=== PATIENT | male | born 1965 | race Caucasian/White ===

== ENCOUNTER 2017-08-10 03:31 | Emergency (ER) | payer OTHER ==
[2017-08-10 04:07] LABS: Absolute Lymphocytes (CBC) 2.1 K/uL (0.7-4.9); Absolute Monocytes 0.6 K/uL (0.1-1.3); Absolute Neutrophil 5.4 K/uL (1.8-8.0); Basophils % 0.6 % (0-1.3); Eosinophils % 1.6 % (0-4.4); Hematocrit 46.3 % (39.6-49.0); Lymphocytes % 25.1 % (15.3-44.8); MCH 31.2 pg (27.0-35.0); MCV 93.2 fL (80-100); MPV 8.1 fL (7.6-11.3); Monocytes % 6.7 % (3.3-12.3); RBC Red Blood Cell Count 4.96 M/uL (4.33-5.43)
[2017-08-10 04:17] LABS: Protime INR 0.99
[2017-08-10 04:23] LABS: Potassium 3.3 mEq/L (3.6-5.0)
[2017-08-10 04:29] LABS: Albumin 4.1 g/dL (3.2-5.5); Bilirubin Direct 0.1 mg/dL (0-0.2); Bilirubin Total 0.5 mg/dL (0.3-1.2); Magnesium 2.2 mg/dL (1.8-2.5)
[2017-08-10 04:31] LABS: CKMB Creatine Kinase MB 4.4 ng/ml (0.3-4.0)
--- NOTE | 2017-08-10 05:29 | ER ---
Nurse's Notes [facility] Name: Fuad Sullivan Age: 52 yrs Sex: Male : 1965 Arrival Date: 08/10/2017 Time: 03:32 Bed 8 Private MD: Diagnosis: Syncope and collapse Presentation: 08/10 03:40 Presenting complaint: states: approx 43 mis [employer] pt began vomiting and having aa1 diarrhea and had a syncopal episode while sitting on the toilet. reports pt slumped over onto her but did not fall. Pt denies any pain at this time. Transition of care: patient was not received from another setting of care. Onset of symptoms was August 10, 2017 at 02:45. Care prior to arrival: None. 03:40 Method Of Arrival: Ambulatory aa1 03:40 Acuity: TYLER 3 aa1 Triage Assessment: 03:40 General: Appears in no apparent distress. comfortable, Behavior is calm, cooperative, aa1 appropriate for age. Neuro: Level of Consciousness is awake, alert, obeys commands, Oriented to person, place, time, situation. Historical: - Allergies: 03:49 No Known Allergies; aa1 - Home Meds: 03:49 metoprolol tartrate 50 mg Oral tab once daily [Active]; atorvastatin 20 mg oral tab 1 aa1 tab once daily [Active]; famotidine 20 mg Oral tab [Active]; - PMHx: 03:49 High Cholesterol; Hypertension; Gastric Reflux; aa1 - PSHx: 03:49 left ear surgery; aa1 - Immunization history:: Flu vaccine is not up to date. - Social history:: Smoking status: Patient/guardian denies using tobacco. - Family history:: not pertinent. Screenin:43 Abuse screen: Denies threats or abuse. Denies injuries from another. Nutritional ao screening: No deficits noted. Tuberculosis screening: No symptoms or risk factors identified. Fall Risk Fall in past 12 months (25 points). No secondary diagnosis (0 pts). IV access (20 points). Ambulatory Aid- None/Bed Rest/Nurse Assist (0 pts). Gait- Normal/Bed Rest/Wheelchair (0 pts) Mental Status- Oriented to own ability (0 pts). Total Paz Fall Scale indicates High Risk Score (45 or more points). Fall prevention measures have been instituted. Side Rails Up X 2 Frequent Obs/Assessments Occuring Family Present and informed to notify staff if the need to leave the bedside As available patient and family educated on Fall Prevention Program and Strategies. Assessment: 03:40 General: Appears in no apparent distress. comfortable, Behavior is calm, cooperative, ao appropriate for age. Pain: Complains of pain in abdomen Pain does not radiate. Pain currently is 0 out of 10 on a pain scale. Neuro: Level of Consciousness is awake, alert, obeys commands, Oriented to person, place, time, situation, Appropriate for age Moves all extremities. Speech is normal, Facial symmetry appears normal. Neuro: Reports dizziness, a syncopal episode weakness. Cardiovascular: Heart tones S1 S2 Rhythm is regular. Respiratory: Airway is patent Respiratory effort is even, unlabored, Respiratory pattern is regular, symmetrical. GI: Abdomen is round. GI: Reports nausea. : No signs and/or symptoms were reported regarding the genitourinary system. EENT: No signs and/or symptoms were reported regarding the EENT system. Derm: Skin is intact. Musculoskeletal: Reports weakness in general. 04:42 Reassessment: Patient appears in no apparent distress at this time. Patient and/or ao family updated on plan of care and expected duration. Pain level reassessed. Patient is alert, oriented x 3, equal unlabored respirations, skin warm/dry/pink. Waiting on lab work. 05:45 Reassessment: Patient appears in no apparent distress at this time. Patient and/or ao family updated on plan of care and expected duration. Pain level reassessed. Patient is alert, oriented x 3, equal unlabored respirations, skin warm/dry/pink. Patient to be discharge. 06:00 Reassessment: DC instructions given to patient and family. Patient understand the POC ao and to follow up with a equipment maintenance technician. Patient has no questions at this time. Vital Signs: 03:40 BP 135 / 78; Pulse 69; Resp 16; Temp 97.6; Pulse Ox 100% on R/A; Pain 0/10; aa1 04:42 BP 138 / 83; Pulse 67; Resp 16; Pulse Ox 97% on R/A; Pain 0/10; ao 05:45 BP 136 / 81; Pulse 63; Resp 18; Pulse Ox 100% on R/A; Pain 0/10; ao ED Course: 03:32 Patient arrived in ED. al2 03:36 Carlos Jacques, RN is Primary Nurse. ao 03:37 Lucinda Shell MD is Attending Physician. ma2 03:40 Arm band placed on right wrist. Patient placed in an exam room, on a stretcher. aa1 03:45 Patient has correct armband on for positive identification. Placed in gown. Pulse ox ao on. NIBP on. 03:46 Inserted saline lock: 20 gauge in right antecubital area, using aseptic technique. ao ,using aseptic technique. YAHAIRA Francois Blood collected. 03:48 Triage completed. aa1 05:41 X-ray completed. Portable x-ray completed in exam room. Patient tolerated procedure jw2 well. 05:42 Chest Single View XRAY In Process Unspecified. EDMS 06:02 No provider procedures requiring assistance completed. IV discontinued, intact, ao bleeding controlled, No redness/swelling at site. Pressure dressing applied. Administered Medications: No medications were administered Point of Care Testin:01 None ordered ao Ranges: Outcome: 05:28 Discharge ordered by . ma2 06:02 Discharged to home ambulatory. ao 06:02 Condition: stable 06:02 Discharge instructions given to patient, Instructed on discharge instructions, follow up and referral plans. Demonstrated understanding of instructions, follow-up care, medications. 06:02 Patient left the ED. ao Signatures: Dispatcher [employer] EDMS Ely Núñez RN RN aa1 Carlos Jacques, RN RN Kerrie Jasmine jw2 Sandrine Waggoner al2 Lucinda Shell MD MD ma2 Corrections: (The following items were deleted from the chart) 04:46 03:43 Fall Risk None identified. ao ao
--- NOTE | 2017-08-10 05:29 | EDPHYS ---
Physician Documentation [facility] Name: Fuad Sullivan Age: 52 yrs Sex: Male : 1965 Arrival Date: 08/10/2017 Time: 03:32 Bed 8 Private MD: ED Physician Lucinda Shell HPI: 08/10 03:54 This 52 yrs old Male presents to ER via Ambulatory with complaints of ma2 Syncope, Fever, Nausea/Vomiting/Diarrhea. 03:54 The patient has experienced syncope. Onset: The symptoms/episode began/occurred ma2 suddenly, just prior to arrival. Duration: This was a single episode, that lasted 30 second(s). Context: the episode(s) was witnessed, by family, occurred while the patient was urinating. Associated injury: The patient did not suffer any apparent associated injury. Associated signs and symptoms: Pertinent negatives: abdominal pain, agitation, ataxia, blurred vision, chest pain, combativeness, confusion, diaphoresis, diarrhea, headache, lightheadedness, numbness, palpitations, seizure, shortness of breath, tingling, vertigo, vomiting. Current symptoms: Currently, the patient is not experiencing any symptoms, the patient feels back to baseline. The patient has experienced similar episodes in the past. his syncope in the past is always while urinting . Historical: - Allergies: 03:49 No Known Allergies; aa1 - Home Meds: 03:49 metoprolol tartrate 50 mg Oral tab once daily [Active]; atorvastatin 20 mg oral tab 1 aa1 tab once daily [Active]; famotidine 20 mg Oral tab [Active]; - PMHx: 03:49 High Cholesterol; Hypertension; Gastric Reflux; aa1 - PSHx: 03:49 left ear surgery; aa1 - Immunization history:: Flu vaccine is not up to date. - Social history:: Smoking status: Patient/guardian denies using tobacco. - Family history:: not pertinent. ROS: 03:54 Constitutional: Negative for fever, chills, and weight loss, Eyes: Negative for injury, ma2 pain, redness, and discharge, Neck: Negative for injury, pain, and swelling, Abdomen/GI: Negative for abdominal pain, nausea, diarrhea, and constipation, Back: Negative for injury and pain, MS/Extremity: Negative for injury and deformity. 03:54 All other systems are negative. Exam: 03:54 Constitutional: This is a well developed, well nourished patient who is awake, alert, ma2 and in no acute distress. Head/Face: Normocephalic, atraumatic. ENT: Nares patent. No nasal discharge, no septal abnormalities noted. Tympanic membranes are normal and external auditory canals are clear. Oropharynx with no redness, swelling, or masses, exudates, or evidence of obstruction, uvula midline. Mucous membranes moist. Chest/axilla: Normal chest wall appearance and motion. Nontender with no deformity. No lesions are appreciated. Cardiovascular: Regular rate and rhythm with a normal S1 and S2. No gallops, murmurs, or rubs. Normal PMI, no JVD. No pulse deficits. Respiratory: Lungs have equal breath sounds bilaterally, clear to auscultation and percussion. No rales, rhonchi or wheezes noted. No increased work of breathing, no retractions or nasal flaring. Abdomen/GI: Soft, non-tender, with normal bowel sounds. No distension or tympany. No guarding or rebound. No evidence of tenderness throughout. MS/ Extremity: Pulses equal, no cyanosis. Neurovascular intact. Full, normal range of motion. Vital Signs: 03:40 BP 135 / 78; Pulse 69; Resp 16; Temp 97.6; Pulse Ox 100% on R/A; Pain 0/10; aa1 04:42 BP 138 / 83; Pulse 67; Resp 16; Pulse Ox 97% on R/A; Pain 0/10; ao 05:45 BP 136 / 81; Pulse 63; Resp 18; Pulse Ox 100% on R/A; Pain 0/10; ao MDM: 03:38 Patient medically screened. ma2 03:54 Differential Diagnosis: cardiac arrhythmia, GI bleed, idiopathic syncope, sepsis, ma2 vasovagal episode. 05:26 Data reviewed: vital signs, nurses notes, EMS record, radiologic studies. 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 Test interpretation: by ED physician or midlevel provider: ECG, plain radiologic studies. Counseling: I had a detailed discussion with the patient and/or guardian regarding: the historical points, exam findings, and any diagnostic results supporting the discharge/admit diagnosis, the presence of at least one elevated blood pressure reading (>120/80) during this emergency department visit, radiology results, the need for outpatient follow up. Medical screen evaluation completed. EMTALA emergency medical condition absent. ED course: patient had syncope while urinating he is low risk per melton mary jane score.. will f/u with pcp . 08/10 03:49 Order name: Amylase, Serum; Complete Time: 04:45 ma2 08/10 03:49 Order name: Basic Metabolic Panel; Complete Time: 04:45 ma2 08/10 03:49 Order name: BNP; Complete Time: 04:45 ma2 08/10 03:49 Order name: CBC with Diff; Complete Time: 04:45 ma2 08/10 03:49 Order name: Ckmb; Complete Time: 04:45 ma2 08/10 03:49 Order name: CPK; Complete Time: 04:45 ma2 08/10 03:49 Order name: Hepatic Function; Complete Time: 04:45 ma2 08/10 03:49 Order name: Lipase; Complete Time: 04:45 ma2 08/10 03:49 Order name: Magnesium; Complete Time: 04:45 ma2 08/10 03:49 Order name: Protime (+inr); Complete Time: 04:45 ma2 08/10 03:49 Order name: Ptt, Activated; Complete Time: 04:45 ma2 08/10 03:49 Order name: Troponin (emerg Dept Use Only); Complete Time: 04:45 ma2 08/10 05:01 Order name: Chest Single View XRAY ao 08/10 05:53 Order name: Urine Dipstick--Ancillary (enter results) em1 08/10 03:49 Order name: EKG; Complete Time: 03:50 ma2 08/10 03:49 Order name: Cardiac monitoring; Complete Time: 04:01 ma2 08/10 03:49 Order name: EKG - Nurse/Tech; Complete Time: 04:01 ma2 08/10 03:49 Order name: IV Saline Lock; Complete Time: 03:51 ma2 08/10 03:49 Order name: Labs collected and sent; Complete Time: 03:51 ma2 08/10 03:49 Order name: NPO; Complete Time: 03:51 ma2 08/10 03:49 Order name: O2 Per Protocol; Complete Time: 03:51 ma2 08/10 03:49 Order name: O2 Sat Monitoring; Complete Time: 03:51 ma2 08/10 03:49 Order name: Urine Dipstick-Ancillary (obtain specimen); Complete Time: 05:52 ma2 Administered Medications: No medications were administered Point of Care Testin:01 None ordered ao Ranges: Critical Glucose Levels:Adult <50 mg/dl or >400 mg/dl <40 mg/dl or >180 mg/dl Disposition: 08/10/17 05:28 Discharged to Home. Impression: Syncope and collapse. - Condition is Stable. - Discharge Instructions: Syncope, Syncope, [id number]. - Medication Reconciliation Form, Thank You Letter, Antibiotic Education, Prescription Opioid Use form. - Follow up: Private Physician; When: 48 Hours; Reason: Continuance of care. - Problem is new. - Symptoms are unchanged. Signatures: Dispatcher [employer] Ely Yang RN RN aa1 Carlos Jacques RN RN ao Lucinda Shell MD MD ma2
[2017-08-10 06:00] LABS: Urine Blood NEGATIVE (NEG); Urine Glucose NEGATIVE (NEG); Urine Protein 1+ (NEG); Urine Specific Gravity >1.030 (1.005-1.030)
--- NOTE | 2017-08-10 08:36 | RAD REPORT ---
EXAM DESCRIPTION: Lv Single View08/10/2017 5:42 am CLINICAL HISTORY: Chest pain COMPARISON: 2014 FINDINGS: The patient is in a poor degree of inspiration with elevation left hemidiaphragm. The elev ation is unchanged from 2014. The lungs appear clear of acute infiltrate. The heart is normal size
--- NOTE | 2017-08-10 10:20 | EKG ---
Test Date: 2017-08-10 Test Time: 03:57:48 Sign Hanger: EUN MEASUREMENT RESULTS: Intervals: Rate: 66 MA: 164 QRSD: 92 QT: 412 QTc: 431 [place]: P: 45 MA: 164 QRS: 3 T: 34 INTERPRETIVE STATEMENTS: Normal sinus rhythm Normal ECG Compared to ECG 08/31/1998 21:54:00 No significant changes Electronically Signed On 08-10-17 10:19:51 CDT by Darren Hernandez
== END 2017-08-10 06:02 | disposition home or self-care (01) ==
LOC: ER 03:31
DX: R55 Syncope and collapse (principal); I10 Essential (primary) hypertension; E78.00 Pure hypercholesterolemia, unspecified
CPT/HCPCS: 36415; 71045; 80048; 80076; 81003; 82150; 82550; 82553; 83690; 83735; 83880; 84484; 85025; 85610; 85730; 93005; 99284

== ENCOUNTER 2017-11-15 11:21 | Emergency (ER) | payer OTHER ==
[2017-11-15] MEDS ORDERED: NA CHLORIDE 0.9% 1,000 ML ONE (11:57)
[2017-11-15] MEDS ORDERED: DIAZEPAM 10 MG/2 ML INJ SYRINGE ONE (12:00)
--- NOTE | 2017-11-15 12:44 | RAD REPORT ---
EXAM DESCRIPTION: DION Marlow CP - 11/15/2017 12:25 pm CLINICAL HISTORY: Dizziness, syncope COMPARISON: None. TECHNIQUE: Real-time sonographic evaluation of both carotid systems was performed. Doppler interroga tion was performed with waveform tracing bilaterally. FINDINGS: Normal high resistance waveforms are noted in both external carotid arteries. The common c arotid arteries and internal carotid arteries show normal low resistance waveforms. Minimal plaquing changes in each bulb. No significant luminal narrowing. Peak systolic and end diasto lic velocity values and the ICA/CCA ratios are in the non-hemodynamically significant range. Antegrade flow seen in both vertebral arteries. Velocity values and ratios were recorded and are retained in the patient's imaging records. IMPRESSION: No significant atherosclerotic changes noted. No evidence of a hemodynamically significant stenosis.
--- NOTE | 2017-11-15 12:45 | RAD REPORT ---
EXAM DESCRIPTION: CT - Head Brain Wo Cont - 11/15/2017 12:39 pm CLINICAL HISTORY: Syncope COMPARISON: None. TECHNIQUE: Axial 5 mm thick images of the head were obtained without IV contrast. All CT scans are performed using dose optimization technique as appropriate and may include automated exposure control or mA/KV adjustment according to patient size. FINDINGS: No intracranial hemorrhage, mass, edema or shift of mid-line structures. No acute cortical based infarction. No cortical edema or sulcal effacement. Asymmetry is created by head tilt. No sign ificant atrophy or chronic ischemic change. No abnormal extra-axial fluid collections. Ventricles are normal. Mastoid air cells and visualized portions of the paranasal sinuses are clear. No acute bony findings. IMPRESSION: Negative non-contrast CT head examination for acute or significant finding.
[2017-11-15 12:49] LABS: Absolute Lymphocytes (CBC) 1.7 K/uL (0.7-4.9); Absolute Monocytes 0.6 K/uL (0.1-1.3); Absolute Neutrophil 6.9 K/uL (1.8-8.0); Lymphocytes % 17.9 % (15.3-44.8); MCH 32.2 pg (27.0-35.0); MCV 94.3 fL (80-100); MPV 8.3 fL (7.6-11.3); Monocytes % 6.7 % (3.3-12.3); RBC Red Blood Cell Count 4.66 M/uL (4.33-5.43)
[2017-11-15 13:10] LABS: Albumin 3.5 g/dL (3.4-5.0); Bilirubin Direct 0.2 mg/dL (0-0.2); Bilirubin Total 0.7 mg/dL (0.2-1.0); CKMB Creatine Kinase MB 1.4 ng/mL (0.3-3.6); Magnesium 2.4 mg/dL (1.8-2.4); Potassium 3.8 mmol/L (3.5-5.1); Protein, Total 6.6 g/dL (6.4-8.2)
[2017-11-15 13:31] LABS: Protime INR 1.14
--- NOTE | 2017-11-15 13:36 | RAD REPORT ---
EXAM DESCRIPTION: RAD - Chest Single View - 11/15/2017 1:00 pm CLINICAL HISTORY: Syncope, shortness of breath COMPARISON: August 10 TECHNIQUE: AP portable chest image was obtained 1247 hours . FINDINGS: Low lung volumes noted. No acute lung parenchymal process. No failure or volume overload. Lung markings are similar to comparison. Heart and vasculature are normal. No measurable pleural effusion and no pneumothorax. No gross bony abnormality seen. No acute aortic findings suspected. IMPRESSION: No acute cardiopulmonary process. No significant change from comparison.
--- NOTE | 2017-11-15 13:56 | ER ---
Nurse's Notes [facility] Name: Fuad Sullivan Age: 52 yrs Sex: Male : 1965 Arrival Date: 11/15/2017 Time: 11:25 Bed 2 Private MD: Diagnosis: Syncope and collapse;Superficial injury of head-contusion Presentation: 11/15 11:34 Presenting complaint: EMS states: He said that he has feeling bad and went to go to his aj1 car when he had a syncopal episode and hit the back of his head. Family states the syncopal episode lasted about 1 minute. Hematoma noted to back of head. EMS states that patient was pale and diaphoretic upon their arrival, manual BP 70/38, heart rate 48. IV was initiated by EMS and they started infusion of NS, Pt's BP improved, remained sinus bradycardia on the monitor en route. Patient states that he is feeling better now. Denies dizziness, denies pain. Care prior to arrival: None. Mechanism of Injury: Fall from standing position. Trauma event details: Injury occurred in the [facility]. 11:34 Acuity: TYLER 2 aj1 11:34 Method Of Arrival: EMS aj1 11:40 Transition of care: patient was not received from another setting of care. Onset of aj1 symptoms was November 15, 2017. Risk Assessment: Do you want to hurt yourself or someone else? Patient reports no desire to harm self or others. Initial Sepsis Screen: Does the patient meet any 2 criteria? No. Patient's initial sepsis screen is negative. Does the patient have a suspected source of infection? No. Patient's initial sepsis screen is negative. Triage Assessment: 11:41 Neuro: Level of Consciousness is awake, alert, obeys commands, Reports a syncopal aj1 episode. Trauma Activation: Not Applicable Physician: ED Physician; Name: ; Notified At: ; Arrived At: Physician: General Surgeon; Name: ; Notified At: ; Arrived At: Physician: Radiology; Name: ; Notified At: ; Arrived At: Physician: Respiratory; Name: ; Notified At: ; Arrived At: Physician: Lab; Name: ; Notified At: ; Arrived At: Historical: - Allergies: 11:41 No Known Allergies; aj1 - Home Meds: 11:41 atorvastatin 20 mg Oral tab 1 tab once daily [Active]; metoprolol tartrate 50 mg Oral aj1 tab once daily [Active]; - PMHx: 11:41 Gastric Reflux; High Cholesterol; Hypertension; aj1 - PSHx: 11:41 ear surgery; aj1 - Immunization history:: Flu vaccine is not up to date. - Social history:: Smoking status: Patient/guardian denies using tobacco. - Ebola Screening: : Patient denies travel to an Ebola-affected area in the 21 days before illness onset. - Family history:: not pertinent. Screenin:34 Abuse screen: Denies threats or abuse. Denies injuries from another. Tuberculosis aj1 screening: No symptoms or risk factors identified. 11:42 Nutritional screening: No deficits noted. aj1 16:48 Fall Risk None identified. aj1 Assessment: 11:34 General: Appears in no apparent distress. comfortable, Behavior is calm, cooperative, aj1 appropriate for age. Pain: Denies pain. 11:42 Neuro: Level of Consciousness is awake, alert, obeys commands, Oriented to person, aj1 place, time, situation, Moves all extremities. Full function Speech is normal, Facial symmetry appears normal, Reports a syncopal episode Denies weakness blurred vision dizziness. Cardiovascular: Heart tones S1 S2 present Patient's skin is warm and dry. Rhythm is sinus bradycardia Chest pain is denied. Respiratory: Airway is patent Respiratory effort is even, unlabored, Respiratory pattern is regular, symmetrical, Breath sounds are clear bilaterally. GI: Abdomen is non-distended. : No signs and/or symptoms were reported regarding the genitourinary system. EENT: No signs and/or symptoms were reported regarding the EENT system. Derm: No signs and/or symptoms reported regarding the dermatologic system. Skin is pink, warm \T\ dry. normal. Musculoskeletal: Circulation, motion, and sensation intact. 12:51 Reassessment: Patient appears in no apparent distress at this time. No changes from aj1 previously documented assessment. Patient and/or family updated on plan of care and expected duration. Pain level reassessed. Patient is alert, oriented x 3, equal unlabored respirations, skin warm/dry/pink. 13:50 Reassessment: Patient appears in no apparent distress at this time. No changes from aj1 previously documented assessment. Patient and/or family updated on plan of care and expected duration. Pain level reassessed. Patient is alert, oriented x 3, equal unlabored respirations, skin warm/dry/pink. 14:15 Reassessment: PT discharge pending Dr. Olmstead going to speak with the patient. aj1 14:49 Reassessment: Patient appears in no apparent distress at this time. No changes from aj1 previously documented assessment. Patient and/or family updated on plan of care and expected duration. Pain level reassessed. Patient is alert, oriented x 3, equal unlabored respirations, skin warm/dry/pink. 15:50 Reassessment: Patient and/or family updated on plan of care and expected duration. Pain aj1 level reassessed. General: Appears in no apparent distress. comfortable, Behavior is calm, cooperative, appropriate for age. Pain: Denies pain. Neuro: Level of Consciousness is awake, alert, obeys commands, Moves all extremities. Full function Speech is normal, Facial symmetry appears normal. Cardiovascular: Patient's skin is warm and dry. Rhythm is sinus bradycardia. Respiratory: Airway is patent Respiratory effort is even, unlabored, Respiratory pattern is regular, symmetrical. Derm: Skin is pink, warm \T\ dry. normal. Musculoskeletal: Circulation, motion, and sensation intact. 16:41 Reassessment: Patient appears in no apparent distress at this time. No changes from aj1 previously documented assessment. Patient and/or family updated on plan of care and expected duration. Pain level reassessed. Patient is alert, oriented x 3, equal unlabored respirations, skin warm/dry/pink. Vital Signs: 11:34 BP 102 / 45; Pulse 56; Resp 25; Pulse Ox 97% ; Pain 0/10; aj1 11:42 Temp 98.0(O); aj1 11:51 BP 111 / 70 Supine; Pulse 55; Resp 18; Pulse Ox 96% on R/A; dh3 11:54 BP 100 / 57 Sitting; Pulse 56; Resp 15; Pulse Ox 95% on R/A; dh3 11:56 BP 100 / 78 Standing; Pulse 59; Resp 17; Pulse Ox 97% ; dh3 12:51 BP 111 / 66; Pulse 56; Resp 18; Pulse Ox 99% on R/A; aj1 14:49 BP 112 / 73; Pulse 59; Resp 18; Pulse Ox 97% on R/A; aj1 15:45 BP 123 / 75; Pulse 55; Resp 18; Pulse Ox 97% on R/A; dh3 16:30 BP 135 / 91; Pulse 59; Resp 17; Pulse Ox 99% on R/A; dh3 16:46 BP 117 / 65; Pulse 62; Resp 18; Pulse Ox 99% ; aj1 [place] Coma Score: 11:34 Eye Response: spontaneous(4). Verbal Response: oriented(5). Motor Response: obeys aj1 commands(6). Total: 15. Trauma Score (Adult): 11:34 Eye Response: spontaneous(1); Verbal Response: oriented(1); Motor Response: obeys aj1 commands(2); Systolic BP: > 89 mm Hg(4); Respiratory Rate: 10 to 29 per min(4); [place] Score: 15; Trauma Score: 12 ED Course: 11:25 Patient arrived in ED. ss 11:28 Shane Olmstead MD is Attending Physician. shantanu 11:34 Stacey Sherwood, RN is Primary Nurse. aj1 11:34 Patient has correct armband on for positive identification. Bed in low position. Call aj1 light in reach. Side rails up X 1. 11:34 Patient maintains SpO2 saturation greater than 95% on room air. aj1 11:38 Triage completed. aj1 11:41 Arm band placed on. aj1 11:42 No provider procedures requiring assistance completed. Maintain EMS IV. Dressing aj1 intact. Good blood return noted. Site clean \T\ dry. Gauge \T\ site: 18g right FA. 11:47 Thermoregulation: none required at this time. aj1 12:22 Ultrasound completed. Patient tolerated well. sg3 12:26 US Carotid Artery Bilateral In Process Unspecified. EDMS 12:38 CT completed. Patient moved to CT via stretcher. Patient moved back from CT. cw1 12:38 CT Head Brain wo Cont In Process Unspecified. EDMS 13:00 XRAY Chest (1 view) In Process Unspecified. EDMS 13:55 Lamin Orozco MD is Referral Physician. shantanu 16:48 IV discontinued, intact, bleeding controlled, No redness/swelling at site. Pressure aj1 dressing applied. Administered Medications: 12:56 Drug: NS 0.9% 1000 ml Route: IV; Rate: 1 bolus; Site: right forearm; aj1 14:50 Follow up: IV Status: Completed infusion; IV Intake: 1000ml aj1 Point of Care Testing: Blood Glucose: 11:47 Blood Glucose: 107 mg/dL; aj1 Ranges: Intake: 14:50 IV: 1000ml; Total: 1000ml. aj1 Outcome: 13:56 Discharge ordered by . shantanu 16:48 Discharged to home ambulatory. aj1 16:48 Condition: good 16:48 Discharge instructions given to patient, Instructed on discharge instructions, follow up and referral plans. Demonstrated understanding of instructions, follow-up care. 16:49 Patient left the ED. aj1 Signatures: Dispatcher [employer] Stacey Skinner, RN RN [email or web address] Shane Olmstead MD MD cha Smirch, Shelby, RN Sonia Varela 1 Chela Hernadez 3 Graciela Hi 3
--- NOTE | 2017-11-15 13:56 | EDPHYS ---
Physician Documentation [facility] Name: Fuad Sullivan Age: 52 yrs Sex: Male : 1965 Arrival Date: 11/15/2017 Time: 11:25 Bed 2 Private MD: ED Physician Shane Olmstead HPI: 11/15 12:30 This 52 yrs old Male presents to ER via EMS with complaints of Syncope. shantanu 12:30 The patient has experienced syncope, became unresponsive. Onset: The symptoms/episode shantanu began/occurred just prior to arrival, this morning. Duration: This was a single episode, that lasted 15 second(s). Context: the episode(s) was witnessed, by family. Associated injury: Head/face:. Associated signs and symptoms: The patient has no apparent associated signs or symptoms. Current symptoms: Currently, the patient is not experiencing any symptoms. The patient has experienced similar episodes in the past, several times. Historical: - Allergies: 11:41 No Known Allergies; aj1 - Home Meds: 11:41 atorvastatin 20 mg Oral tab 1 tab once daily [Active]; metoprolol tartrate 50 mg Oral aj1 tab once daily [Active]; - PMHx: 11:41 Gastric Reflux; High Cholesterol; Hypertension; aj1 - PSHx: 11:41 ear surgery; aj1 - Immunization history:: Flu vaccine is not up to date. - Social history:: Smoking status: Patient/guardian denies using tobacco. - Ebola Screening: : Patient denies travel to an Ebola-affected area in the 21 days before illness onset. - Family history:: not pertinent. ROS: 12:30 Constitutional: Negative for fever, chills, and weight loss, Eyes: Negative for injury, shantanu pain, redness, and discharge, ENT: Negative for injury, pain, and discharge, Neck: Negative for injury, pain, and swelling, Cardiovascular: Negative for chest pain, palpitations, and edema, Respiratory: Negative for shortness of breath, cough, wheezing, and pleuritic chest pain, Abdomen/GI: Negative for abdominal pain, nausea, vomiting, diarrhea, and constipation, Back: Negative for injury and pain, : Negative for injury, bleeding, discharge, and swelling, MS/Extremity: Negative for injury and deformity, Skin: Negative for injury, rash, and discoloration, Psych: Negative for depression, anxiety, suicide ideation, homicidal ideation, and hallucinations, Allergy/Immunology: Negative for hives, rash, and allergies, Endocrine: Negative for neck swelling, polydipsia, polyuria, polyphagia, and marked weight changes, Hematologic/Lymphatic: Negative for swollen nodes, abnormal bleeding, and unusual bruising. 12:30 Neuro: Positive for headache, near syncope, weakness. Exam: 12:30 Constitutional: This is a well developed, well nourished patient who is awake, alert, shantanu and in no acute distress. Head/Face: Normocephalic, atraumatic. Eyes: Pupils equal round and reactive to light, extra-ocular motions intact. Lids and lashes normal. Conjunctiva and sclera are non-icteric and not injected. Cornea within normal limits. Periorbital areas with no swelling, redness, or edema. ENT: Nares patent. No nasal discharge, no septal abnormalities noted. Tympanic membranes are normal and external auditory canals are clear. Oropharynx with no redness, swelling, or masses, exudates, or evidence of obstruction, uvula midline. Mucous membranes moist. Neck: Trachea midline, no thyromegaly or masses palpated, and no cervical lymphadenopathy. Supple, full range of motion without nuchal rigidity, or vertebral point tenderness. No Meningismus. Chest/axilla: Normal chest wall appearance and motion. Nontender with no deformity. No lesions are appreciated. Cardiovascular: Regular rate and rhythm with a normal S1 and S2. No gallops, murmurs, or rubs. Normal PMI, no JVD. No pulse deficits. Respiratory: Lungs have equal breath sounds bilaterally, clear to auscultation and percussion. No rales, rhonchi or wheezes noted. No increased work of breathing, no retractions or nasal flaring. Abdomen/GI: Soft, non-tender, with normal bowel sounds. No distension or tympany. No guarding or rebound. No evidence of tenderness throughout. Back: No spinal tenderness. No costovertebral tenderness. Full range of motion. Male : Normal genitalia with no discharge or lesions. Skin: Warm, dry with normal turgor. Normal color with no rashes, no lesions, and no evidence of cellulitis. MS/ Extremity: Pulses equal, no cyanosis. Neurovascular intact. Full, normal range of motion. Neuro: Awake and alert, GCS 15, oriented to person, place, time, and situation. Cranial nerves II-XII grossly intact. Motor strength 5/5 in all extremities. Sensory grossly intact. Cerebellar exam normal. Normal gait. Psych: Awake, alert, with orientation to person, place and time. Behavior, mood, and affect are within normal limits. 12:32 Musculoskeletal/extremity: DVT Exam: No signs of deep vein thrombosis. no pain, no shantanu swelling, no tenderness, negative Homans' sign noted on exam, no appreciated bluish discoloration, no erythema, no increased warmth. Vital Signs: 11:34 BP 102 / 45; Pulse 56; Resp 25; Pulse Ox 97% ; Pain 0/10; aj1 11:42 Temp 98.0(O); aj1 11:51 BP 111 / 70 Supine; Pulse 55; Resp 18; Pulse Ox 96% on R/A; dh3 11:54 BP 100 / 57 Sitting; Pulse 56; Resp 15; Pulse Ox 95% on R/A; dh3 11:56 BP 100 / 78 Standing; Pulse 59; Resp 17; Pulse Ox 97% ; dh3 12:51 BP 111 / 66; Pulse 56; Resp 18; Pulse Ox 99% on R/A; aj1 14:49 BP 112 / 73; Pulse 59; Resp 18; Pulse Ox 97% on R/A; aj1 15:45 BP 123 / 75; Pulse 55; Resp 18; Pulse Ox 97% on R/A; dh3 16:30 BP 135 / 91; Pulse 59; Resp 17; Pulse Ox 99% on R/A; dh3 16:46 BP 117 / 65; Pulse 62; Resp 18; Pulse Ox 99% ; aj1 [place] Coma Score: 11:34 Eye Response: spontaneous(4). Verbal Response: oriented(5). Motor Response: obeys aj1 commands(6). Total: 15. Trauma Score (Adult): 11:34 Eye Response: spontaneous(1); Verbal Response: oriented(1); Motor Response: obeys aj1 commands(2); Systolic BP: > 89 mm Hg(4); Respiratory Rate: 10 to 29 per min(4); [place] Score: 15; Trauma Score: 12 MDM: 11:28 Patient medically screened. [facility] 12:31 Data reviewed: vital signs, nurses notes, lab test result(s), EKG, radiologic studies, [facility] CT scan, plain films. 11/15 11:49 Order name: Basic Metabolic Panel; Complete Time: 13:47 [facility] 11/15 11:49 Order name: CBC with Diff; Complete Time: 13:47 [facility] 11/15 11:49 Order name: Ckmb; Complete Time: 13:47 [facility] 11/15 11:49 Order name: CPK; Complete Time: 13:47 [facility] 11/15 11:49 Order name: LFT's; Complete Time: 13:47 [facility] 11/15 11:49 Order name: Magnesium; Complete Time: 13:47 [facility] 11/15 11:49 Order name: NT PRO-BNP; Complete Time: 13:47 [facility] 11/15 11:49 Order name: PT-INR; Complete Time: 13:47 [facility] 11/15 11:49 Order name: Ptt, Activated; Complete Time: 13:47 [facility] 11/15 11:49 Order name: Troponin (emerg Dept Use Only); Complete Time: 13:47 [facility] 11/15 11:49 Order name: XRAY Chest (1 view); Complete Time: 13:47 [facility] 11/15 11:49 Order name: CT Head Brain wo Cont; Complete Time: 13:47 [facility] 11/15 13:58 Order name: Glucose, Ancillary Testing; Complete Time: 16:16 EDAR 11/15 14:54 Order name: Urine Dipstick--Ancillary (enter results); Complete Time: 16:16 11/15 11:49 Order name: EKG; Complete Time: 11:50 [facility] 11/15 11:49 Order name: Cardiac monitoring; Complete Time: 11:51 [facility] 11/15 11:49 Order name: EKG - Nurse/Tech; Complete Time: 12:04 [facility] 11/15 11:49 Order name: IV Saline Lock; Complete Time: 11:51 [facility] 11/15 11:49 Order name: Labs collected and sent; Complete Time: 12:36 [facility] 11/15 11:49 Order name: O2 Per Protocol; Complete Time: 11:51 [facility] 11/15 11:49 Order name: O2 Sat Monitoring; Complete Time: 11:51 [facility] 11/15 11:49 Order name: US Carotid Artery Bilateral; Complete Time: 13:47 [facility] 11/15 11:49 Order name: Orthostatics; Complete Time: 12:04 [facility] Administered Medications: 12:56 Drug: NS 0.9% 1000 ml Route: IV; Rate: 1 bolus; Site: right forearm; aj1 14:50 Follow up: IV Status: Completed infusion; IV Intake: 1000ml aj1 Point of Care Testing: Blood Glucose: 11:47 Blood Glucose: 107 mg/dL; aj1 Ranges: Critical Glucose Levels:Adult <50 mg/dl or >400 mg/dl <40 mg/dl or >180 mg/dl Disposition: 11/15/17 13:56 Discharged to Home. Impression: Syncope and collapse, Superficial injury of head - contusion. - Condition is Stable. - Discharge Instructions: Head Injury, Adult, Near-Syncope, Syncope, Weakness, Near-Syncope, [id number], Syncope, [id number], Weakness, Zyli-[id number], Head Injury, Adult, [id number]. - Medication Reconciliation Form, Thank You Letter, Antibiotic Education, Prescription Opioid Use form. - Follow up: Private Physician; When: 2 - 3 days; Reason: Recheck today's complaints, Continuance of care, Re-evaluation by your physician. Follow up: aLmin Orozco; When: 2 - 3 days; Reason: Recheck today's complaints, Re-evaluation by your physician. - Problem is new. - Symptoms have improved. Signatures: Dispatcher [employer] Stacey Skinner RN RN aj1 Shane Olmstead MD MD cha Roszak, Josh, PA PA [id number] Corrections: (The following items were deleted from the chart) 16:49 13:56 11/15/2017 13:56 Discharged to Home. Impression: Syncope and collapse; aj1 Superficial injury of head - contusion. Condition is Stable. Discharge Instructions: Head Injury, Adult, Near-Syncope, Syncope, Weakness, Near-Syncope, [id number], Syncope, Nsya-[id number]-Apbv, Weakness, Zkgn-zr-[id number], Head Injury, Adult, [id number]-[id number]. Forms are Medication Reconciliation Form, Thank You Letter, Antibiotic Education, Prescription Opioid Use. Follow up: Private Physician; When: 2 - 3 days; Reason: Recheck today's complaints, Continuance of care, Re-evaluation by your physician. Follow up: Lamin Orozco; When: 2 - 3 days; Reason: Recheck today's complaints, Re-evaluation by your physician. Problem is new. Symptoms have improved. shantanu
[2017-11-15] MEDS ORDERED: ACETAMINOPHEN 500 MG TAB ONE (13:59)
[2017-11-15 15:17] LABS: Urine Blood NEGATIVE (NEG); Urine Glucose NEGATIVE (NEG); Urine Protein NEGATIVE (NEG)
--- NOTE | 2017-11-16 09:31 | EKG ---
Test Date: 2017-11-15 Test Time: 12:10:49 Alteration Hand: MICKEY MEASUREMENT RESULTS: Intervals: Rate: 55 SC: 166 QRSD: 94 QT: 450 QTc: 430 [place]: P: 23 SC: 166 QRS: -1 T: 25 INTERPRETIVE STATEMENTS: Sinus bradycardia Otherwise normal ECG Compared to ECG 08/10/2017 03:57:48 Sinus rhythm no longer present Electronically Signed On 11-16-17 09:28:18 CDT by Lamin Orozco
== END 2017-11-15 16:49 | disposition home or self-care (01) ==
LOC: ER 11:21
DX: S00.93XA Contusion of unspecified part of head, initial encounter (principal); W01.198A Fall on same level from slipping, tripping and stumbling with subsequent striking against other object, initial encounter; Y93.89 Activity, other specified; Y92.9 Unspecified place or not applicable; I10 Essential (primary) hypertension; E78.00 Pure hypercholesterolemia, unspecified
CPT/HCPCS: 36415; 70450; 71045; 80048; 80076; 81003; 82550; 82553; 82962; 83735; 83880; 84484; 85025; 85610; 85730; 93005; 93880; 96360; 96361; 99285; J3360; J7030

== ENCOUNTER 2020-12-22 14:54 | Emergency (ER) | payer OTHER ==
--- NOTE | 2020-12-22 17:16 | RAD REPORT ---
EXAM DESCRIPTION: Lv Pa And Lat (2 Views)12/22/2020 4:57 pm CLINICAL HISTORY: Cough COMPARISON: 2018 FINDINGS: Mild bilateral pulmonary opacities. The heart is normal size IMPRESSION: No mild bilateral pulmonary opacities probably pneumonia
[2020-12-22 17:59] LABS: Basophils % 0.7 % (0-1.3); Hematocrit 46.5 % (39.6-49.0); MPV 8.2 fL (7.6-11.3); RBC Red Blood Cell Count 5.04 M/uL (4.33-5.43)
[2020-12-22 18:27] LABS: Albumin 3.2 g/dL (3.4-5.0); Bilirubin Direct 0.3 mg/dL (0-0.2); Bilirubin Total 0.8 mg/dL (0.2-1.0); Potassium 3.7 mmol/L (3.5-5.1); Protein, Total 7.4 g/dL (6.4-8.2)
--- NOTE | 2020-12-22 18:52 | RAD REPORT ---
EXAM DESCRIPTION: CT - Chest For Pe Angio - 12/22/2020 6:37 pm CLINICAL HISTORY: sob COMPARISON: December 22, 2020 chest x-ray TECHNIQUE: Dynamically enhanced axial 3 mm thick images of the chest were obtained during administra tion of <100> mL Isovue 370 IV contrast. Coronal and oblique reconstruction images were generated and reviewed. Exam utilizes a protocol for optimal evaluation of pulmonary arterial tree. Maximum intensity projections 3D imaging was utilized All CT scans are performed using dose optimization technique as appropriate and may include automated exposure control or mA/KV adjustment according to patient size. FINDINGS: A pulmonary embolus is not seen. A thoracic aortic aneurysm is not noted. A pleural effusion is not seen. A pericardial effusion is not seen. Mild left lung ground-glass opacities. Moderate right lower lobe ground-glass opacities. Mild additional right lung opacities IMPRESSION: Negative for a pulmonary embolism. Mild to moderate ground-glass opacities within the lungs can be seen with Covid pneumonia
[2020-12-22] MEDS ORDERED: ONDANSETRON 4 MG/2 ML VIAL ONE (19:25)
[2020-12-22] MEDS ORDERED: NA CHLORIDE 0.9% 1,000 ML ONE (19:26)
--- NOTE | 2020-12-22 20:15 | EDPHYS ---
Physician Documentation [facility] Name: Fuad Sullivan Age: 55 yrs Sex: Male : 1965 Arrival Date: 12/22/2020 Time: 15:44 Bed 24 Private MD: ED Physician Duong Lee HPI: 12/22 20:10 This 55 yrs old Male presents to ER via Ambulatory with complaints of pna and jmm dehydration concern. 20:10 Onset: The symptoms/episode began/occurred gradually, 2 week(s) ago. Duration: The jmm symptoms are continuous. The patient's shortness of breath is aggravated by nothing, is alleviated by nothing. Associated signs and symptoms: Pertinent positives: vomiting, Pertinent negatives: fever, loss of consciousness. 5-year-old male no chronic medical conditions presents emerged part with complaints of shortness of breath and vomiting progressively worsening over the past 2 weeks. Patient was diagnosed with coronavirus pneumonia.. Historical: - Allergies: 16:10 No Known Allergies; kg - Home Meds: 16:11 None [Active]; kg - PMHx: 16:11 None; kg - PSHx: 16:11 None; kg - Immunization history:: Adult Immunizations not up to date, Client reports receiving the 1st dose of the Covid vaccine, December 08, 2020 Presley \T\ Presley . - Social history:: Smoking status: Patient denies any tobacco usage or history of. Patient uses. ROS: 20:10 Constitutional: Positive for body aches, fatigue. jmm 20:10 Respiratory: Positive for cough. 20:10 Abdomen/GI: Positive for vomiting. 20:10 All other systems are negative. Exam: 20:10 Constitutional: This is a well developed, well nourished patient who is awake, alert, jmm and in no acute distress. Head/Face: atraumatic. Eyes: EOMI, no conjunctival erythema appreciated ENT: Moist Mucus Membranes Neck: Trachea midline, Supple Chest/axilla: Normal chest wall appearance and motion. Cardiovascular: Regular rate and rhythm. No edema appreciated Respiratory: Normal respirations, no respiratory distress appreciated Abdomen/GI: Non distended, soft Back: Normal ROM Skin: General appearance color normal MS/ Extremity: Moves all extremities, no obvious deformities appreciated, no edema noted to the lower extremities Neuro: Awake and alert, normal gait Psych: Behavior is normal, Mood is normal, Patient is cooperative and pleasant Vital Signs: 16:08 BP 144 / 93; Pulse 88; Resp 20; Temp 98.1; Pulse Ox 96% on R/A; Weight 94.35 kg (R); kg Height 5 ft. 9 in. (175.26 cm) (R); Pain 6/10; 18:55 BP 132 / 89; Pulse 86; Resp 22; Pulse Ox 97% ; vg1 20:13 BP 141 / 81; Pulse 82; Resp 20; Pulse Ox 97% on R/A; vg1 16:08 Body Mass Index 30.72 (94.35 kg, 175.26 cm) kg MDM: 18:03 Patient medically screened. carlton 20:10 Data reviewed: vital signs, nurses notes. Counseling: I had a detailed discussion with carlton the patient and/or guardian regarding: the historical points, exam findings, and any diagnostic results supporting the discharge/admit diagnosis, lab results, radiology results, the need for outpatient follow up, to return to the emergency department if symptoms worsen or persist or if there are any questions or concerns that arise at home. ED course: Patient is alert nontoxic in the ED. VS normal. Patient is otherwise given strict return precautions. Patient understood and agrees plan of care.. 08 16:14 Order name: Basic Metabolic Panel; Complete Time: 18:33 kg 12/22 16:14 Order name: CBC with Diff; Complete Time: 18:05 kg 12/22 16:14 Order name: XRAY Chest Pa And Lat (2 Views); Complete Time: 18:49 kg 12/22 16:14 Order name: Hepatic Function; Complete Time: 18:33 kg 12/22 16:14 Order name: Lipase; Complete Time: 18:33 kg 12/22 16:14 Order name: D-Dimer; Complete Time: 18:08 kg 12/22 16:14 Order name: IV Saline Lock; Complete Time: 17:31 kg 12/22 16:14 Order name: Labs collected and sent; Complete Time: 17:31 kg 20 18:06 Order name: CT Chest For PE Angio; Complete Time: 18:53 [facility] Administered Medications: 19:05 Drug: NS 0.9% 1000 ml Route: IV; Rate: 1 bolus; Site: right antecubital; vg1 20:14 Follow up: IV Status: Completed infusion; IV Intake: 1000ml vg1 19:06 Drug: Zofran (Ondansetron) 4 mg Route: IVP; Site: right antecubital; vg1 20:14 Follow up: Response: No adverse reaction; Marked relief of symptoms vg1 Disposition Summary: 12/22/20 20:14 Discharge Ordered Location: Home [facility] Condition: Stable [facility] Diagnosis - Coronavirus infection, unspecified [facility] Followup: [facility] - With: Private Physician - When: 2 - 3 days - Reason: Recheck today's complaints, Continuance of care, Re-evaluation by your physician Discharge Instructions: - Discharge Summary Sheet [facility] - COVID-19 [facility] Forms: - Medication Reconciliation Form [facility] - Thank You Letter [facility] - Antibiotic Education [facility] - Prescription Opioid Use [facility] Prescriptions: - ivermectin 3 mg Oral tablet - take 12 tablet by ORAL route as directed 6 tablets now and another 6 on day 3; [facility] 12 tablet; Refills: 0, Product Selection Permitted - ondansetron 4 mg Oral tablet,disintegrating - place 1 tablet by TRANSLINGUAL route every 4-6 hours; 20 tablet; Refills: 0, [facility] Product Selection Permitted - Prednisone 20 mg Oral Tablet - take 3 tablets by ORAL route once daily for 5 days; 15 tablet; Refills: 0, [facility] Product Selection Permitted - Zithromax Z-Jose Luis 250 mg Oral Tablet - take 1 tablet by ORAL route as directed for 5 days Day 1 - take two (2) tablets [facility] one time. Day 2, 3, 4 , 5 take one (1) tablet once daily.; 6 tablet; Refills: 0, Product Selection Permitted Addendum: 12/24/2020 09:08 Co-signature as Attending Physician, Duong Lee MD I agree with the assessment and k dr plan of care. Signatures: Dispatcher [employer] EDCA Duong Lee MD MD kdr Mickail, Joel, PA PA Airam Garza, RN RN vg1 Mary Beth Siegel RN RN kg
--- NOTE | 2020-12-22 20:15 | ER ---
Nurse's Notes [facility] Name: Fuad Sullivan Age: 55 yrs Sex: Male : 1965 Arrival Date: 12/22/2020 Time: 15:44 Bed 24 Private MD: Diagnosis: Coronavirus infection, unspecified Presentation: 12/22 16:08 Chief complaint: Patient states: Pt was sent over by PC for dehydration and PNA. SOB, kg Chest pain, vomiting starting 12/18. Coronavirus screen: Client denies travel out of the [place] in the last 14 days. At this time, unable to obtain information related to travel outside the [place] Ebola Screen: Patient negative for fever greater than or equal to 101.5 degrees Fahrenheit, and additional compatible Ebola Virus Disease symptoms Patient denies exposure to infectious person. Patient denies travel to an Ebola-affected area in the 21 days before illness onset. Initial Sepsis Screen: Does the patient meet any 2 criteria? No. Patient's initial sepsis screen is negative. Does the patient have a suspected source of infection? No. Patient's initial sepsis screen is negative. 16:08 Method Of Arrival: Ambulatory kg 16:26 Acuity: TYLER 3 kg 16:26 Risk Assessment: Do you want to hurt yourself or someone else? Patient reports no kg desire to harm self or others. Triage Assessment: 16:12 General: Appears in no apparent distress. Behavior is calm, cooperative, appropriate kg for age, quiet. Pain: Complains of pain in chest Pain radiates to Generalized Pain currently is 6 out of 10 on a pain scale. Historical: - Allergies: 16:10 No Known Allergies; kg - Home Meds: 16:11 None [Active]; kg - PMHx: 16:11 None; kg - PSHx: 16:11 None; kg - Immunization history:: Adult Immunizations not up to date, Client reports receiving the 1st dose of the Covid vaccine, December 08, 2020 Presley \T\ Presley . - Social history:: Smoking status: Patient denies any tobacco usage or history of. Patient uses. Screenin:13 Abuse screen: Denies threats or abuse. Denies injuries from another. Nutritional kg screening: No deficits noted. Tuberculosis screening: No symptoms or risk factors identified. Fall Risk None identified. Assessment: 18:57 General: Appears in no apparent distress. comfortable, Behavior is calm, cooperative. vg1 Pain: Denies pain. Neuro: Level of Consciousness is awake, alert, obeys commands, Oriented to person, place, time, situation. Cardiovascular: Patient's skin is warm and dry. Respiratory: Reports cough that is since 12/13/20 pain with cough Airway is patent Respiratory effort is even, unlabored, Breath sounds with crackles in right posterior middle lobe. GI: Reports nausea, vomiting, Patient currently denies diarrhea. : No signs and/or symptoms were reported regarding the genitourinary system. EENT: No signs and/or symptoms were reported regarding the EENT system. Derm: Skin is intact, is healthy with good turgor. Musculoskeletal: Circulation, motion, and sensation intact. 20:12 Reassessment: Patient appears in no apparent distress at this time. No changes from vg1 previously documented assessment. Patient and/or family updated on plan of care and expected duration. Pain level reassessed. Patient is alert, oriented x 3, equal unlabored respirations, skin warm/dry/pink. Vital Signs: 16:08 BP 144 / 93; Pulse 88; Resp 20; Temp 98.1; Pulse Ox 96% on R/A; Weight 94.35 kg (R); kg Height 5 ft. 9 in. (175.26 cm) (R); Pain 6/10; 18:55 BP 132 / 89; Pulse 86; Resp 22; Pulse Ox 97% ; vg1 20:13 BP 141 / 81; Pulse 82; Resp 20; Pulse Ox 97% on R/A; vg1 16:08 Body Mass Index 30.72 (94.35 kg, 175.26 cm) kg ED Course: 15:44 Patient arrived in ED. am2 16:12 Arm band placed on right wrist. kg 16:13 Patient has correct armband on for positive identification. kg 16:26 Triage completed. kg 16:26 No provider procedures requiring assistance completed. kg 16:57 XRAY Chest Pa And Lat (2 Views) In Process Unspecified. EDMS 17:21 Elie Mendoza PA is PHCP. jmm 17:21 Duong Lee MD is Attending Physician. jmm 17:43 Initial lab(s) drawn, by me, sent to lab. Inserted saline lock: 20 gauge in right em1 forearm, using aseptic technique. Blood collected. 18:36 CT Chest For PE Angio In Process Unspecified. EDMS 18:45 Airam Begum, RN is Primary Nurse. vg1 20:54 IV discontinued, intact, bleeding controlled, No redness/swelling at site. Pressure vg1 dressing applied. Administered Medications: 19:05 Drug: NS 0.9% 1000 ml Route: IV; Rate: 1 bolus; Site: right antecubital; vg1 20:14 Follow up: IV Status: Completed infusion; IV Intake: 1000ml vg1 19:06 Drug: Zofran (Ondansetron) 4 mg Route: IVP; Site: right antecubital; vg1 20:14 Follow up: Response: No adverse reaction; Marked relief of symptoms vg1 Intake: 20:14 IV: 1000ml; Total: 1000ml. vg1 Outcome: 20:14 Discharge ordered by . [facility] 20:54 Discharged to home ambulatory. vg1 20:54 Condition: stable 20:54 Discharge instructions given to patient, Instructed on discharge instructions, follow up and referral plans. medication usage, Demonstrated understanding of instructions, follow-up care, medications, Prescriptions given X 4. 20:54 Patient left the ED. vg1 Signatures: Dispatcher [employer] EDMS Elie Mendoza PA PA jmm Martinez, Eric em1 Courtney Acevedo am2 Airam Begum, RN RN vg1 Mary Beth Siegel RN RN kg
[2020-12-22 20:59] VITALS: TEMP 98.1
[2020-12-22 21:00] VITALS: O2SAT 97
[2020-12-22 21:01] VITALS: BP 141/81
== END 2020-12-22 20:54 | disposition home or self-care (01) ==
LOC: ER 14:54
DX: U07.1 COVID-19 (principal)
CPT/HCPCS: 96361; 85025; 80048; 36415; 85379; 80076; 83690; 71275; 71046; 96374; 99284; Q9967; J7030; J2405